=== PATIENT | female | born 1960 | race Caucasian/White ===

== ENCOUNTER 2022-04-10 13:53 | Emergency (ER) | payer OTHER ==
[~2022-04-10] VITALS: Ht 172.7 cm; Wt 80.0 kg
[2022-04-10] MEDS ORDERED: SODIUM CHLORIDE 0.9% 500 ML IV ONE (14:30)
[2022-04-10] MEDS ORDERED: MORPHINE SULFATE 4 MG/ML CPJ (NOT FOR IM USE) IV STA (15:37)
[2022-04-10] MEDS ORDERED: ONDANSETRON HCL 4MG/2ML INJ IV STA (15:37)
[2022-04-10] MEDS ORDERED: HYDROMORPHONE HCL/PF 2MG/ML CPJ IV ONE (17:30)
[2022-04-10 17:49] LABS: HEMATOCRIT. 42.6 % (36.0-48.0); HEMOGLOBIN. 14.3 g/dL (12.0-16.0); MEAN CORPUSCULAR HEMOGLOBIN 28.1 pg (28.0-32.0); MEAN CORPUSCULAR VOLUME 83.8 fL (81.0-99.0); MEAN PLATELET VOLUME 7.7 fl (7.4-10.4); PLATELET 240 x1000/uL (130-400); RED BLOOD CELL COUNT 5.08 mill/uL (4.2-5.4); RED CELL DISTRIBUTION WIDTH 14.5 % (11.6-14.6)
[2022-04-10 17:58] LABS: PROTHROMBIN TIME 10.8 sec (9.6-11.0)
[2022-04-10 18:31] LABS: CHLORIDE 102 mEq/L (98-107)
[2022-04-10 18:34] LABS: PLATELET ESTIMATE NORMAL
[2022-04-10] MEDS ORDERED: ONDANSETRON HCL 4MG/2ML INJ IV ONE (19:00)
[2022-04-10 20:30] VITALS: BP 159/78
== END 2022-04-10 21:39 | disposition short-term general hospital (02) ==
LOC: ER 14:53 → CANBEDREQ 04-11 14:10
DX: S72.091A Other fracture of head and neck of right femur, initial encounter for closed fracture (principal); I49.8 Other specified cardiac arrhythmias; W01.0XXA Fall on same level from slipping, tripping and stumbling without subsequent striking against object, initial encounter; Y93.89 Activity, other specified; Y92.488 Other paved roadways as the place of occurrence of the external cause; Z88.0 Allergy status to penicillin
CPT/HCPCS: 36415; 71045; 73502; 73552; 80053; 85025; 85610; 86850; 86900; 86901; 87426; 93005; 96361; 96374; 96375; 96376; 99285; C9803; J1170; J2270; J2405; J7040